=== PATIENT | female | born 1950 | race Two or more races ===

== ENCOUNTER 2023-08-01 11:43 | Inpatient (IN) | payer OTHER ==
[~2023-08-01] VITALS: Ht 165.1 cm; Wt 65.8 kg
[2023-08-01] MEDS ORDERED: ESTAZOLAM1 MG (12:22)
[2023-08-01] MEDS ORDERED: ATENOLOL25 MG (12:22)
[2023-08-01] MEDS ORDERED: AMLODIPINE-OLM1 EAC2 (12:22)
[2023-08-01] MEDS ORDERED: SYNTHROID88 MCG (12:22)
--- NOTE | 2023-08-01 12:38 | NUR ---
PACIENTE ALERTA Y ORIENTADA X3. PACIENTE REFIERE VENIR POR MAREOS DESDE HACE CUATRO MORALES. SE OBSERVA PACIENTE PALIDA. PACIENTE CON BP MANUAL 88/60MMHG. SE REALIZA EKG Y SE PRESENTA A DR. SORENSEN. SE NOTIFICA AL MEDICO QUE LA PACIENTE PADECE DE TALASEMIA Y ANEMIA. PACIENTE CON DXT EN 152MG/DL. SE UBICA EN AREA DE OBSERVACION PARA EVALAUCION MEDICA.
[2023-08-01] MEDS ORDERED: FAMOTIDINE/PF 20 MG in 0.9 % SODIUM CHLORIDE 8 ML IV PUSH STA (12:49)
[2023-08-01] MEDS ORDERED: ONDANSETRON HCL 2 MG/ML VIAL IV ONE (13:00)
--- NOTE | 2023-08-01 14:29 | NUR ---
SE REALIZA VENOPUNCION PARA COLECTAR MUESTRAS Y PARA DEJAR VENA PATENTE.
--- NOTE | 2023-08-01 15:00 | NUR ---
SE RECIBE PTE ALERTA Y ORIENTADA X3. EN TASIA BAJA CON BARANDAS ELEVADAS POR SEGURIDAD. HL EN ANTE DISHAO PAULO #20, PATENTE, JOSE DE EDEMA Y ERITEMA. PEND UA Y UC Y CT
[2023-08-01 15:07] LABS: HEMATOCRIT 40.9 % (36.0-45.00); HEMOGLOBIN 13.9 g/dL (12.0-15.00); MEAN CELL VOLUME 83.2 fL (80.00-100.00); MEAN CORPUSCULAR HEMOGLOBIN 28.2 pg (27.00-32.0); MEAN CORPUSCULAR HGB CONC 33.9 g/dl (32.0-36.0); PLATELET COUNT 78 K/uL (150-450); RED BLOOD COUNT 4.92 M/uL (4.00-6.00); RED CELL DISTRIBUTION WIDTH 14.3 % (11.5-14.5)
[2023-08-01 15:53] LABS: ALBUMIN 3.4 gm/dL (3.4-5.0); BILIRUBIN TOTAL 0.49 mg/dL (0.3-1.2); CALCIUM 9.4 mg/dL (8.5-10.1); CREATININE SERUM 1.62 mg/dL (0.55-1.02); GFR 31.32; GLOBULINA 4.4 G/DL (2.4-3.5); POTASSIUM 3.79 mEq/L (3.5-5.1); TOTAL PROTEIN 7.8 gm/dL (6.4-8.2)
[2023-08-01] MEDS ORDERED: 0.9 % SODIUM CHLORIDE 1,000 ML IV SCH ×2 (16:15→18:00)
[2023-08-01] MEDS ORDERED: 0.9 % SODIUM CHLORIDE 500 ML IV ONE (18:00)
[2023-08-01] MEDS ORDERED: ONDANSETRON HCL 4 MG in 0.9 % SODIUM CHLORIDE 50 ML IV PRN (18:00)
[2023-08-01] MEDS ORDERED: ACETAMINOPHEN 500 MG GEL..CAP PO PRN (18:00)
[2023-08-01] MEDS ORDERED: SODIUM BICARBONATE 50 MEQ in SODIUM CHLORIDE 0.45 % 1,000 ML IV ONE (18:15)
[2023-08-01 19:08] LABS: ABG PH 7.435 (7.35-7.45); ABG PO2 88.3 mmHg (80-100); ABG pCO2 29.5 mmHg (35-45)
[2023-08-01 19:09] LABS: BASE EXCESS -3.5 mmol/l; BICARBONATE 19.3 mmol/l (23-25); Tco2 20.2 mmol/l; allen test SATISFACTORY; o2 21 %; puncture site BRADIAL RIGHT
[2023-08-01 19:16] LABS: ERYTHROCYTE SEDIMENTATION RATE 40 mm/hr
[2023-08-01 19:23] LABS: PLT IN CITRATE 78 K/uL (150-450)
[2023-08-01 19:34] LABS: D DIMER 1.44 MG/L; PARTIAL THROMBOPLASTIN TIME 27.1 SECONDS (22.0-34.0)
[2023-08-01 19:35] LABS: PHOSPHOROUS 2.5 mg/dL (2.5-4.9)
[2023-08-01 19:39] LABS: INR 0.97; PROTHROMBIN TIME 10.2 SECONDS (9.0-11.5)
[2023-08-01 20:29] LABS: PH,URINE 5.5 (5.0-8.0); URINE APPEARANCE Turbid; URINE BILIRRUBIN Negative (NEGATIVE); URINE BLOOD Moderate; URINE COLOR Yellow; URINE GLUCOSE Negative (NEGATIVE); URINE LEUKOCYTE Trace; URINE NITRATE Positive; URINE PROTEIN 30 (NEGATIVE); URINE UROBILINOGEN 0.2 E.U./dl
[2023-08-01 20:32] LABS: URINE EPITHELIAL CELLS 18.5 uL (0.0-38.8); URINE RBC 3.7 uL (0.0-20.8); URINE WBC 36.7 uL (0.0-23.2)
[2023-08-01 20:46] LABS: URINE BACTERIA > 9821.5 uL (0.0-1933)
[2023-08-02] MEDS ORDERED: LEVOTHYROXINE SODIUM 88 MCG TABLET PO SCH (06:00)
[2023-08-02] MEDS ORDERED: SODIUM BICARBONATE 50 MEQ in SODIUM CHLORIDE 0.45 % 1,000 ML IV ONE (07:00)
[2023-08-02 07:33] LABS: CALCIUM 8.8 mg/dL (8.5-10.1); CREATININE SERUM 0.88 mg/dL (0.55-1.02); GFR 63.34; MAGNESIUM 2.2 mg/dL (1.8-2.4); TSH 0.61 uIU/mL (0.358-3.74)
[2023-08-02 07:37] LABS: POTASSIUM 4.6 mEq/L (3.5-5.1)
[2023-08-02] MEDS ORDERED: PANTOPRAZOLE SODIUM 40 MG/VIAL VIAL IV SCH (09:00)
[2023-08-02] MEDS ORDERED: CEFTRIAXONE SODIUM 2,000 MG VIAL IV SCH (11:05)
[2023-08-02] MEDS ORDERED: RINGERS SOLUTION,LACTATED 1,000 ML IV SCH (11:15)
[2023-08-02] MEDS ORDERED: AMLODIPINE BESYLATE 5 MG TABLET PO SCH (20:49)
[2023-08-03 07:46] LABS: ALBUMIN 3.2 gm/dL (3.4-5.0); BILIRUBIN TOTAL 0.58 mg/dL (0.3-1.2); CALCIUM 8.7 mg/dL (8.5-10.1); CREATININE SERUM 0.94 mg/dL (0.55-1.02); GFR 58.7; GLOBULINA 3.6 G/DL (2.4-3.5); MAGNESIUM 1.9 mg/dL (1.8-2.4); PHOSPHOROUS 2.2 mg/dL (2.5-4.9); POTASSIUM 3.3 mEq/L (3.5-5.1); TOTAL PROTEIN 6.8 gm/dL (6.4-8.2)
[2023-08-03 07:53] LABS: HEMATOCRIT 35.2 % (36.0-45.00); HEMOGLOBIN 11.9 g/dL (12.0-15.00); MEAN CELL VOLUME 82.4 fL (80.00-100.00); MEAN CORPUSCULAR HEMOGLOBIN 27.9 pg (27.00-32.0); MEAN CORPUSCULAR HGB CONC 33.8 g/dl (32.0-36.0); PLATELET COUNT 151 K/uL (150-450); RED BLOOD COUNT 4.26 M/uL (4.00-6.00); RED CELL DISTRIBUTION WIDTH 14.4 % (11.5-14.5)
[2023-08-03] MEDS ORDERED: IRON FUM,PS/FOLIC/BCOMP,C NO.9 1 CAP CAPSULE PO SCH (09:00)
[2023-08-03] MEDS ORDERED: POTASSIUM BICARBONATE/CIT AC 25 MEQ TABLET.EFF PO SCH (10:02)
[2023-08-03] MEDS ORDERED: POTASSIUM PHOS,M-BASIC-D-BASIC 15 MM in 0.9 % SODIUM CHLORIDE 250 ML IV ONE (10:15)
[2023-08-03] MEDS ORDERED: ENOXAPARIN SODIUM 40 MG/0.4 ML SYRINGE SUBCUTANEO SCH (16:23)
[2023-08-03] MEDS ORDERED: AMLODIPINE BESYLATE 5 MG TABLET PO SCH (17:00)
[2023-08-03] MEDS ORDERED: POTASSIUM BICARBONATE/CIT AC 25 MEQ TABLET.EFF PO ONE (18:15)
[2023-08-04 06:33] LABS: HEMATOCRIT 34.3 % (36.0-45.00); HEMOGLOBIN 11.7 g/dL (12.0-15.00); MEAN CELL VOLUME 84.3 fL (80.00-100.00); MEAN CORPUSCULAR HEMOGLOBIN 28.7 pg (27.00-32.0); MEAN CORPUSCULAR HGB CONC 34.1 g/dl (32.0-36.0); PLATELET COUNT 198 K/uL (150-450); RED BLOOD COUNT 4.07 M/uL (4.00-6.00)
[2023-08-04 07:25] LABS: ALBUMIN 3.2 gm/dL (3.4-5.0); BILIRUBIN TOTAL 0.65 mg/dL (0.3-1.2); CALCIUM 8.6 mg/dL (8.5-10.1); CREATININE SERUM 0.77 mg/dL (0.55-1.02); GFR 73.9; GLOBULINA 3.5 G/DL (2.4-3.5); POTASSIUM 3.99 mEq/L (3.5-5.1); TOTAL PROTEIN 6.7 gm/dL (6.4-8.2)
[2023-08-04] MEDS ORDERED: LOSARTAN POTASSIUM 25 MG TABLET PO SCH (14:03)
[2023-08-04] MEDS ORDERED: METOPROLOL SUCCINATE 25 MG TAB.SR.24H PO SCH (14:07)
[2023-08-04] MEDS ORDERED: AMLODIPINE BESYLATE 5 MG TABLET PO SCH (17:00)
[2023-08-05] MEDS ORDERED: LOSARTAN POTASS25 MG PO (11:33)
[2023-08-05] MEDS ORDERED: INTEGRA PLUS C1 EACH PO (11:33)
[2023-08-05] MEDS ORDERED: AMLODIPINE BESYL5 MG PO (11:33)
[2023-08-05] MEDS ORDERED: LEVOTHYROXINE88 MCG PO (11:35)
[2023-08-05] MEDS ORDERED: TOPROL XL25 M1 PO (11:35)
== END 2023-08-05 14:29 | disposition home or self-care (01) | DRG 557 ==
LOC: ER 11:43 → ICU-2 18:51 → MEDI 08-02 16:06
PROVIDERS: General Practice; Internal Medicine; ADMIT Internal Medicine; ATTEND Internal Medicine
PROC: BW28ZZZ Computerized Tomography (CT Scan) of Head (ICD-10-PCS; 2023-08-01)
PROC: BW2FZZZ Computerized Tomography (CT Scan) of Neck (ICD-10-PCS; 2023-08-01)
PROC: B345ZZZ Ultrasonography of Bilateral Common Carotid Arteries (ICD-10-PCS; 2023-08-01)
PROC: B24BZZZ Ultrasonography of Heart with Aorta (ICD-10-PCS; 2023-08-01)
PROC: 4A12X4Z Monitoring of Cardiac Electrical Activity, External Approach (ICD-10-PCS; principal; 2023-08-02)
PROC: B030ZZZ Magnetic Resonance Imaging (MRI) of Brain (ICD-10-PCS; 2023-08-02)
DX: M62.82 Rhabdomyolysis (principal); I21.A1 Myocardial infarction type 2; N17.9 Acute kidney failure, unspecified; N39.0 Urinary tract infection, site not specified; E86.0 Dehydration; R55 Syncope and collapse; E78.5 Hyperlipidemia, unspecified; E03.9 Hypothyroidism, unspecified; G40.909 Epilepsy, unspecified, not intractable, without status epilepticus; W13.3XXA Fall through floor, initial encounter; Y93.9 Activity, unspecified; Y92.9 Unspecified place or not applicable
CPT/HCPCS: 70553